=== PATIENT | male | born 1960 | race Caucasian/White ===

== ENCOUNTER 2018-07-04 14:13 | Inpatient (IN) | payer MEDICAID, OTHER ==
[~2018-07-04] VITALS: Ht 177.8 cm; Wt 62.5 kg
[2018-07-04] MEDS ORDERED: SODIUM CHLORIDE 0.9% 1,000 ML IV SCH (15:00)
[2018-07-04] MEDS ORDERED: ONDANSETRON 2MG/ML, 2ML IVPush ONE (15:00)
[2018-07-04 15:12] LABS: MEAN CORPUSCULAR HEMOGLOBIN 31.9 pg (27.5-34.5); MEAN CORPUSCULAR HGB CONC 33.8 g/dL (33.2-36.2); MEAN CORPUSCULAR VOLUME 94.5 fL (81-97); MEAN PLATELET VOLUME 12.3 fL (7.4-10.4); PLATELET COUNT 173 x10^3/uL (130-400); RED BLOOD COUNT 7.38 x10^6/uL (4.38-5.82); RED CELL DISTRIBUTION WIDTH 12.9 % (9.4-14.8)
[2018-07-04 15:31] LABS: ALANINE AMINOTRANSFERASE 70 U/L (12-78); ALBUMIN 4.8 g/dL (3.4-5.0); ANION GAP 24 mmol/L (5-15); CALCIUM 11.4 mg/dL (8.5-10.1); CHLORIDE 94 mmol/L (98-107); CREATININE 3.67 mg/dL (0.7-1.3)
[2018-07-04 15:36] LABS: ALKALINE PHOSPHATASE 127 U/L (45-117); BILIRUBIN,TOTAL 2.2 mg/dL (0.2-1.0); TOTAL PROTEIN 9.5 g/dL (6.4-8.2); TROPONIN I < 0.015 ng/mL (0.000-0.045)
[2018-07-04 15:38] LABS: CREATINE KINASE, TOTAL 208 U/L (39-308)
[2018-07-04 15:54] LABS: <RBC MORPHOLOGY> NORMAL; BASOPHILS # (AUTO) 0.05 x10^3/uL (0-0.1); BASOPHILS % (AUTO) 0 % (0-1); EOSINOPHILS # (AUTO) 0.02 x10^3/uL (0-0.4); EOSINOPHILS % (AUTO) 0 % (1-7); LYMPHOCYTES % (AUTO) 5 % (22-44); MD MORPH REVIEW ONLY; MONOCYTES % (AUTO) 5 % (2-9); NEUTROPHILS % (AUTO) 90 % (42-75)
[2018-07-04 15:55] LABS: <PLATELET ESTIMATE> ADEQUATE; LARGE PLATELETS 1+
[2018-07-04] MEDS ORDERED: SODIUM CHLORIDE 0.9%, 500ML IVBOLUS ONE (16:00)
[2018-07-04 17:10] LABS: INTERNATIONAL NORMALIZED RATIO 1.2 (0.93-1.1); PROTHROMBIN TIME 12.6 Seconds (9.6-11.5)
[2018-07-04] MEDS ORDERED: hydrALAzine 20 MG/ML, 1ML IVPush PRN (18:00)
[2018-07-04] MEDS ORDERED: LABETALOL 5MG/ML, 20ML IVPush PRN (18:00)
[2018-07-04] MEDS ORDERED: ONDANSETRON ODT 4 MG PO PRN (18:00)
[2018-07-04] MEDS ORDERED: ACETAMINOPHEN 325 MG TABLET PO PRN (18:00)
--- NOTE | 2018-07-04 18:32 | NUR ---
SBAR TO HIMANSHU DOMÍNGUEZ VIA TELEPHONE
[2018-07-04 18:46] LABS: THYROID STIMULATING HORMONE 1.74 mIU/L (0.358-3.740)
[2018-07-04 19:20] VITALS: BP 124/87
[2018-07-04] MEDS: HEPARIN 5,000 UNITS/ML, 1ML SQ SCH (21:24)
[2018-07-04] MEDS: SODIUM CHLORIDE 0.9% 1,000 ML IV SCH (21:25)
[2018-07-04] MEDS: NICOTINE 14MG/24 HR PATCH.TD24 TD SCH (21:25)
[2018-07-04] MEDS: PIPERACILLIN/TAZO/PMX 3.375GM 50 ML IV SCH (21:52)
[2018-07-05 00:38] VITALS: BP 111/77
[2018-07-05 00:55] LABS: MICROSCOPIC INDICATED
[2018-07-05 01:02] LABS: CULTURE INDICATED? NO
[2018-07-05 01:04] LABS: POTASSIUM,URINE RANDOM 56 mmol/L; PROTEIN/CREATININE RATIO,URINE 335 (0-200); TOTAL PROTEIN,URINE RANDOM 57 mg/dL (0-12)
[2018-07-05 01:07] LABS: CHLORIDE,URINE RANDOM < 10 mmol/L; SODIUM,URINE RANDOM < 5 mmol/L
[2018-07-05] MEDS: SODIUM CHLORIDE 0.9% 1,000 ML IV SCH ×2 (04:35→12:43)
[2018-07-05] MEDS: PIPERACILLIN/TAZO/PMX 3.375GM 50 ML IV SCH ×4 (04:35→22:16)
[2018-07-05] MEDS: HEPARIN 5,000 UNITS/ML, 1ML SQ SCH ×3 (04:36→20:55)
[2018-07-05 04:56] LABS: MEAN CORPUSCULAR HEMOGLOBIN 32.1 pg (27.5-34.5); MEAN CORPUSCULAR HGB CONC 33.7 g/dL (33.2-36.2); MEAN CORPUSCULAR VOLUME 95.2 fL (81-97); MEAN PLATELET VOLUME 12.1 fL (7.4-10.4); PLATELET COUNT 145 x10^3/uL (130-400); RED BLOOD COUNT 6.43 x10^6/uL (4.38-5.82); RED CELL DISTRIBUTION WIDTH 12.9 % (9.4-14.8)
[2018-07-05 04:59] LABS: ANION GAP 12 mmol/L (5-15); CALCIUM 9.7 mg/dL (8.5-10.1); CHLORIDE 107 mmol/L (98-107); CREATININE 3.34 mg/dL (0.7-1.3)
[2018-07-05 05:41] LABS: MD YES
[2018-07-05 05:42] LABS: BAND#(MANUAL) 0.55 x10^3/uL; BANDS%(MANUAL) 3 % (0-7); LYMPH#(MANUAL) 0.92 x10^3/uL (1-3.4); LYMPHS% (MANUAL) 5 % (22-44); MONOS#(MANUAL) 0.18 x10^3/uL (0.3-2.7); MONOS% (MANUAL) 1 % (2-9); SEG#(MANUAL) 16.74 x10^3/uL (1.8-6.8); SEGS% (MANUAL) 91 % (42-75)
[2018-07-05 05:43] LABS: <PLATELET ESTIMATE> ADEQUATE; <RBC MORPHOLOGY> NORMAL; LARGE PLATELETS 1+
[2018-07-05 07:55] VITALS: BP 129/87
[2018-07-05 11:17] LABS: AMPHETAMINE SCREEN, URINE Negative (Negative); BARBITURATE SCREEN, URINE Negative (Negative); BENZODIAZEPINE SCREEN, URINE Negative (Negative); CANNABINOID SCREEN, URINE Positive (Negative); COCAINE SCREEN, URINE Negative (Negative); METHADONE SCREEN, URINE Negative (Negative); OPIATE SCREEN, URINE Negative (Negative)
[2018-07-05] MEDS ORDERED: ERGOCALCIFEROL 50,000 UNIT CAPSULE PO SCH (13:00)
[2018-07-05] MEDS: SODIUM CHLORIDE 0.45% 1,000 ML IV SCH ×2 (13:29→20:55)
[2018-07-05 13:45] VITALS: BP 119/85
[2018-07-05 18:57] VITALS: BP 126/85
[2018-07-05] MEDS: NICOTINE 14MG/24 HR PATCH.TD24 TD SCH (20:55)
[2018-07-06 01:27] VITALS: BP 122/79
[2018-07-06] MEDS: PIPERACILLIN/TAZO/PMX 3.375GM 50 ML IV SCH ×4 (04:06→21:54)
[2018-07-06] MEDS: HEPARIN 5,000 UNITS/ML, 1ML SQ SCH ×3 (04:07→21:53)
[2018-07-06] MEDS: SODIUM CHLORIDE 0.45% 1,000 ML IV SCH (05:12)
[2018-07-06 05:55] LABS: BASOPHILS # (AUTO) 0.03 x10^3/uL (0-0.1); BASOPHILS % (AUTO) 0 % (0-1); EOSINOPHILS # (AUTO) 0.03 x10^3/uL (0-0.4); EOSINOPHILS % (AUTO) 0 % (1-7); LYMPHOCYTES # (AUTO) 1.06 x10^3/uL (1-3.4); LYMPHOCYTES % (AUTO) 9 % (22-44); MD NO; MEAN CORPUSCULAR HEMOGLOBIN 32.2 pg (27.5-34.5); MEAN CORPUSCULAR HGB CONC 33.9 g/dL (33.2-36.2); MEAN PLATELET VOLUME 11.6 fL (7.4-10.4); MONOCYTES # (AUTO) 0.88 x10^3/uL (0.2-0.8); MONOCYTES % (AUTO) 8 % (2-9); NEUTROPHILS # (AUTO) 9.58 x10^3/uL (1.8-6.8); NEUTROPHILS % (AUTO) 83 % (42-75); PLATELET COUNT 105 x10^3/uL (130-400); RED CELL DISTRIBUTION WIDTH 13.5 % (9.4-14.8)
[2018-07-06 06:04] LABS: ANION GAP 13 mmol/L (5-15); CALCIUM 9.3 mg/dL (8.5-10.1); CHLORIDE 114 mmol/L (98-107)
[2018-07-06 06:06] LABS: CREATININE 2.63 mg/dL (0.7-1.3)
[2018-07-06 07:30] VITALS: BP 118/72
[2018-07-06] MEDS: POTASSIUM CHLORIDE 20 MEQ in DEXTROSE 5% 1,000 ML IV SCH ×2 (10:47→21:54)
[2018-07-06 13:45] VITALS: BP 120/76
[2018-07-06 20:49] VITALS: BP 122/83
[2018-07-06] MEDS: NICOTINE 14MG/24 HR PATCH.TD24 TD SCH (21:53)
[2018-07-07 02:22] VITALS: BP 119/79
[2018-07-07] MEDS: HEPARIN 5,000 UNITS/ML, 1ML SQ SCH ×3 (02:52→21:29)
[2018-07-07] MEDS: PIPERACILLIN/TAZO/PMX 3.375GM 50 ML IV SCH ×2 (03:45→09:59)
[2018-07-07 05:35] LABS: MEAN CORPUSCULAR HEMOGLOBIN 32.4 pg (27.5-34.5); MEAN CORPUSCULAR HGB CONC 34.1 g/dL (33.2-36.2); MEAN CORPUSCULAR VOLUME 94.9 fL (81-97); RED BLOOD COUNT 5.18 x10^6/uL (4.38-5.82)
[2018-07-07 05:45] LABS: ALBUMIN 2.7 g/dL (3.4-5.0); ANION GAP 10 mmol/L (5-15); CALCIUM 9.1 mg/dL (8.5-10.1); CHLORIDE 113 mmol/L (98-107); CREATININE 1.91 mg/dL (0.7-1.3)
[2018-07-07 06:00] LABS: BASOPHILS # (AUTO) 0.02 x10^3/uL (0-0.1); BASOPHILS % (AUTO) 0 % (0-1); EOSINOPHILS # (AUTO) 0.13 x10^3/uL (0-0.4); EOSINOPHILS % (AUTO) 1 % (1-7); LYMPHOCYTES % (AUTO) 11 % (22-44); MD SCAN; MEAN PLATELET VOLUME 10.7 fL (7.4-10.4); MONOCYTES # (AUTO) 0.91 x10^3/uL (0.2-0.8); MONOCYTES % (AUTO) 10 % (2-9); NEUTROPHILS # (AUTO) 7.31 x10^3/uL (1.8-6.8); NEUTROPHILS % (AUTO) 78 % (42-75); PLATELET COUNT 86 x10^3/uL (130-400)
[2018-07-07 06:50] VITALS: BP 126/89
[2018-07-07] MEDS ORDERED: FENTANYL PF 100 MCG/2ML ONE (08:00)
[2018-07-07] MEDS ORDERED: MIDAZOLAM 1 MG/ML, 5ML ONE (08:00)
[2018-07-07] MEDS ORDERED: POTASSIUM PHOSPHATE 44 MEQ in SODIUM CHLORIDE 0.9% 500 ML IV ONE (09:30)
[2018-07-07] MEDS: POTASSIUM CHLORIDE 20 MEQ in DEXTROSE 5% 1,000 ML IV SCH (09:59)
[2018-07-07 13:00] VITALS: BP 128/81
[2018-07-07] MEDS ORDERED: AMINO ACID 10% IV SCH (17:00)
[2018-07-07] MEDS ORDERED: SMOF TPN IV SCH (17:00)
[2018-07-07] MEDS ORDERED: DEXTROSE 50%, 50ML SYRINGE IVPush PRN (17:00)
[2018-07-07] MEDS ORDERED: [UNRECOGNIZED DRUG - OTHER] IV SCH (17:00)
[2018-07-07] MEDS ORDERED: FAT EMUL IV SCH (17:00)
[2018-07-07] MEDS ORDERED: DEXTROSE 70% IV SCH (17:00)
[2018-07-07] MEDS ORDERED: PVN PER PHARMACY MC PRN (17:00)
[2018-07-07] MEDS ORDERED: DEXTROSE 10% 500 ML IV PRN (17:00)
[2018-07-07] MEDS: FILTER, DISP 1.2 MICRON FOR TPN/PVN IV PRN (18:17)
[2018-07-07] MEDS: INSULIN REGULAR LOW DOSE Q6H X 48HRS SQ-INSULIN SCH (21:29)
[2018-07-07] MEDS: NICOTINE 14MG/24 HR PATCH.TD24 TD SCH (21:29)
[2018-07-07 21:33] VITALS: BP 127/88
[2018-07-08 01:55] VITALS: BP 121/62
[2018-07-08] MEDS: INSULIN REGULAR LOW DOSE Q6H X 48HRS SQ-INSULIN SCH ×4 (03:00→19:36)
[2018-07-08] MEDS: HEPARIN 5,000 UNITS/ML, 1ML SQ SCH (04:44)
[2018-07-08 04:45] VITALS: BP 123/80
[2018-07-08 06:16] LABS: CHLORIDE 111 mmol/L (98-107)
[2018-07-08 06:28] LABS: ALANINE AMINOTRANSFERASE 103 U/L (12-78); ALBUMIN 2.6 g/dL (3.4-5.0); ALKALINE PHOSPHATASE 92 U/L (45-117); ANION GAP 6 mmol/L (5-15); BILIRUBIN,TOTAL 1.2 mg/dL (0.2-1.0); CALCIUM 8.9 mg/dL (8.5-10.1); PREALBUMIN 16.8 mg/dL (20.0-40.0); TOTAL PROTEIN 5.7 g/dL (6.4-8.2); TRIGLYCERIDES 208 mg/dL (50-200)
[2018-07-08 06:33] LABS: MEAN CORPUSCULAR HEMOGLOBIN 32.3 pg (27.5-34.5); MEAN CORPUSCULAR HGB CONC 34.1 g/dL (33.2-36.2); MEAN CORPUSCULAR VOLUME 94.7 fL (81-97); MEAN PLATELET VOLUME 11.2 fL (7.4-10.4); PLATELET COUNT 84 x10^3/uL (130-400); RED BLOOD COUNT 5.06 x10^6/uL (4.38-5.82); RED CELL DISTRIBUTION WIDTH 13.1 % (9.4-14.8)
[2018-07-08 06:35] LABS: BASOPHILS # (AUTO) 0.03 x10^3/uL (0-0.1); BASOPHILS % (AUTO) 0 % (0-1); EOSINOPHILS # (AUTO) 0.22 x10^3/uL (0-0.4); EOSINOPHILS % (AUTO) 3 % (1-7); LYMPHOCYTES # (AUTO) 1.23 x10^3/uL (1-3.4); LYMPHOCYTES % (AUTO) 15 % (22-44); MD SCAN; MONOCYTES # (AUTO) 0.97 x10^3/uL (0.2-0.8); MONOCYTES % (AUTO) 12 % (2-9); NEUTROPHILS # (AUTO) 5.94 x10^3/uL (1.8-6.8); NEUTROPHILS % (AUTO) 71 % (42-75)
[2018-07-08 07:02] VITALS: BP 138/87
[2018-07-08 13:13] VITALS: BP 112/80
[2018-07-08] MEDS: FILTER, DISP 1.2 MICRON FOR TPN/PVN IV PRN (16:22)
[2018-07-08] MEDS ORDERED: OMNIPAQUE 350 MG/ML, 75ML BOTTLE ONE (16:57)
[2018-07-08] MEDS ORDERED: DEXTROSE 70% IV SCH (17:00)
[2018-07-08] MEDS ORDERED: SMOF TPN IV SCH (17:00)
[2018-07-08] MEDS ORDERED: AMINO ACID 10% IV SCH (17:00)
[2018-07-08] MEDS ORDERED: FAT EMUL IV SCH (17:00)
[2018-07-08] MEDS ORDERED: [UNRECOGNIZED DRUG - OTHER] IV SCH (17:00)
[2018-07-08] MEDS: NICOTINE 14MG/24 HR PATCH.TD24 TD SCH (19:47)
[2018-07-08 21:45] VITALS: BP 118/78
[2018-07-09] MEDS: INSULIN REGULAR LOW DOSE Q6H X 48HRS SQ-INSULIN SCH ×2 (03:00→09:00)
[2018-07-09 03:59] VITALS: BP 108/73
[2018-07-09 05:44] LABS: ANION GAP 6 mmol/L (5-15); CHLORIDE 106 mmol/L (98-107); CREATININE 1.13 mg/dL (0.7-1.3)
[2018-07-09] MEDS ORDERED: BUPIVACAINE/PF-EPI 0.5% 1:200K ONE (06:34)
[2018-07-09 07:37] VITALS: BP 122/81
[2018-07-09] MEDS ORDERED: MIDAZOLAM 1 MG/ML, 2ML ONE (11:55)
[2018-07-09] MEDS ORDERED: FENTANYL PF 250 MCG/5ML ONE (11:56)
[2018-07-09] MEDS ORDERED: CEFAZOLIN 1,000 MG ONE (12:06)
[2018-07-09] MEDS ORDERED: ROCURONIUM 10 MG/ML,10ML ONE (12:06)
[2018-07-09] MEDS ORDERED: PROPOFOL 10 MG/ML, 20ML ONE (12:06)
[2018-07-09] MEDS ORDERED: ONDANSETRON 2MG/ML, 2ML ONE (12:06)
[2018-07-09] MEDS ORDERED: EPHEDRINE 50 MG/ML, 1ML IM PRN (13:00)
[2018-07-09] MEDS ORDERED: PROMETHAZINE 12.5 MG SUPP PR PRN (13:00)
[2018-07-09] MEDS ORDERED: ONDANSETRON ODT 8 MG PO PRN (13:00)
[2018-07-09] MEDS ORDERED: MORPHINE SULFATE 4 MG/ML, 1ML IVPush PRN (13:00)
[2018-07-09] MEDS ORDERED: MIDAZOLAM 1 MG/ML, 2ML IV PRN (13:00)
[2018-07-09] MEDS ORDERED: PROMETHAZINE 25 MG/ML, 1ML IV PRN (13:00)
[2018-07-09] MEDS ORDERED: ONDANSETRON 2MG/ML, 2ML IV PRN (13:00)
[2018-07-09] MEDS ORDERED: PROMETHAZINE 25 MG SUPP PR PRN (13:00)
[2018-07-09] MEDS ORDERED: DIPHENHYDRAMINE 50 MG/ML, 1ML IVPush PRN (13:00)
[2018-07-09] MEDS ORDERED: EPHEDRINE 50 MG/ML, 1ML IVPush PRN (13:00)
[2018-07-09] MEDS ORDERED: ALBUTEROL/IPRATROPIUM 2.5MG/0.5MG, 3 ML ONE (13:15)
[2018-07-09] MEDS ORDERED: FENTANYL PF 100 MCG/2ML ONE (13:17)
[2018-07-09] MEDS ORDERED: HYDROmorphone 2 MG/ML, 1ML ONE (13:17)
[2018-07-09] MEDS: FENTANYL PF 100 MCG/2ML IV PRN ×4 (13:20→13:51)
[2018-07-09] MEDS: ALBUTEROL/IPRATROPIUM 2.5MG/0.5MG, 3 ML NPPB PRN (13:24)
[2018-07-09] MEDS: HYDROmorphone 2 MG/ML, 1ML IVPush PRN ×4 (13:25→14:00)
[2018-07-09] MEDS ORDERED: OMNIPAQUE 350 MG/ML, 50 ML BOTTLE ONE (14:05)
[2018-07-09 15:24] VITALS: BP 122/84
[2018-07-09] MEDS ORDERED: FILTER, DISP 1.2 MICRON FOR TPN/PVN IV PRN (17:00)
[2018-07-09] MEDS ORDERED: AMINO ACID 10% 900 ML, DEXTROSE 70% 420 ML, FAT EMUL/SMOF TPN 225 ML, STERILE WATER 1,3... IV SCH (17:00)
[2018-07-09 19:50] VITALS: BP 119/78
[2018-07-09] MEDS: morphine SULFATE 10 MG/ML, 1ML IVPush PRN (21:37)
[2018-07-09] MEDS: NICOTINE 14MG/24 HR PATCH.TD24 TD SCH (21:37)
[2018-07-10 02:08] VITALS: BP 143/91
[2018-07-10 05:27] LABS: CHLORIDE 106 mmol/L (98-107)
[2018-07-10 05:33] LABS: ANION GAP 9 mmol/L (5-15); CALCIUM 8.9 mg/dL (8.5-10.1); CREATININE 0.96 mg/dL (0.7-1.3)
[2018-07-10 07:40] VITALS: BP 132/83
[2018-07-10] MEDS: INSULIN REGULAR LOW DOSE QDAY SQ-INSULIN SCH (07:48)
[2018-07-10] MEDS: morphine SULFATE 10 MG/ML, 1ML IVPush PRN (08:45)
[2018-07-10 13:42] VITALS: BP 126/82
[2018-07-10] MEDS ORDERED: AMINO ACID 10% 900 ML, DEXTROSE 70% 420 ML, FAT EMUL/SMOF TPN 225 ML, STERILE WATER 1,3... IV SCH (17:00)
[2018-07-10 19:31] VITALS: BP 113/79
[2018-07-10] MEDS: NICOTINE 14MG/24 HR PATCH.TD24 TD SCH (21:01)
[2018-07-10 23:33] VITALS: BP 123/77
[2018-07-11] MEDS: ONDANSETRON 2MG/ML, 2ML IVPush PRN (03:52)
[2018-07-11 05:42] LABS: CALCIUM 8.4 mg/dL (8.5-10.1); CHLORIDE 111 mmol/L (98-107)
[2018-07-11 05:49] LABS: ANION GAP 6 mmol/L (5-15); CREATININE 0.92 mg/dL (0.7-1.3)
[2018-07-11 07:27] VITALS: BP 112/73
[2018-07-11] MEDS: INSULIN REGULAR LOW DOSE QDAY SQ-INSULIN SCH (09:54)
[2018-07-11 13:50] VITALS: BP 112/73
[2018-07-11 19:18] VITALS: BP 118/82
[2018-07-11] MEDS: NICOTINE 14MG/24 HR PATCH.TD24 TD SCH (20:46)
[2018-07-12 00:59] VITALS: BP 106/72
[2018-07-12 07:00] VITALS: BP 100/64
[2018-07-12] MEDS ORDERED: ERGOCALCIFEROL 50,000 UNIT CAPSULE PO SCH (09:00)
[2018-07-12] MEDS: GUAIFENESIN 100 MG/5 ML, 10ML UDC JT SCH ×3 (11:26→22:43)
[2018-07-12 13:48] VITALS: BP 112/74
[2018-07-12 19:01] VITALS: BP 113/80
[2018-07-12] MEDS: NICOTINE 14MG/24 HR PATCH.TD24 TD SCH (22:46)
[2018-07-13 00:57] VITALS: BP 113/75
[2018-07-13] MEDS: GUAIFENESIN 100 MG/5 ML, 10ML UDC JT SCH ×4 (06:07→20:07)
[2018-07-13 06:52] VITALS: BP 109/75
[2018-07-13] MEDS ORDERED: POLYETHYLENE GLYCOL 17 GM PACKET JT SCH (09:00)
[2018-07-13 12:26] VITALS: BP 113/78
[2018-07-13] MEDS ORDERED: GLYCERIN ADULT SUPP PR ONE (13:00)
[2018-07-13 19:32] VITALS: BP 140/86
[2018-07-13] MEDS: NICOTINE 14MG/24 HR PATCH.TD24 TD SCH (20:05)
[2018-07-14] MEDS: ONDANSETRON 2MG/ML, 2ML IVPush PRN ×2 (00:14→16:12)
[2018-07-14 00:31] VITALS: BP 116/79
[2018-07-14] MEDS: GUAIFENESIN 100 MG/5 ML, 10ML UDC JT SCH ×4 (06:00→19:43)
[2018-07-14 06:48] VITALS: BP 113/79
[2018-07-14] MEDS ORDERED: ERGO80004 PO (08:41)
[2018-07-14 12:35] VITALS: BP 126/85
--- NOTE | 2018-07-14 14:27 | NUR ---
TF goal: Jevity 1.2 goal: 65 ml/hr Addendum: 07/14/18 at [address] Amended: Links added.
[2018-07-14 19:10] VITALS: BP 133/85
[2018-07-14] MEDS: NICOTINE 14MG/24 HR PATCH.TD24 TD SCH (19:43)
[2018-07-15 02:14] VITALS: BP 115/83
[2018-07-15 05:00] LABS: CHLORIDE 105 mmol/L (98-107)
[2018-07-15 05:04] LABS: ANION GAP 7 mmol/L (5-15); CALCIUM 8.2 mg/dL (8.5-10.1); CREATININE 0.75 mg/dL (0.7-1.3)
[2018-07-15] MEDS: GUAIFENESIN 100 MG/5 ML, 10ML UDC JT SCH ×4 (05:51→20:04)
[2018-07-15 08:55] VITALS: BP 126/82
[2018-07-15] MEDS ORDERED: chlorPROMAZINE 25 MG/ML, 1ML IM PRN (10:00)
[2018-07-15 14:29] VITALS: BP 114/80
[2018-07-15 20:00] VITALS: BP 107/72
[2018-07-15] MEDS: NICOTINE 14MG/24 HR PATCH.TD24 TD SCH (20:05)
[2018-07-16 02:00] VITALS: BP 122/69
[2018-07-16] MEDS: GUAIFENESIN 100 MG/5 ML, 10ML UDC JT SCH ×3 (05:17→16:33)
[2018-07-16 08:14] VITALS: BP 129/86
[2018-07-16 13:04] VITALS: BP 139/88
[2018-07-19] MEDS ORDERED: ERGOCALCIFEROL 8,000UNIT/ML PO SCH (09:00)
== END 2018-07-16 17:38 | disposition home or self-care (01) | DRG 329 ==
LOC: ED 17:40 → EDIP 17:41 → ED 17:45 → 4WST 19:04 → 3NW 07-10 13:26
PROVIDERS: ADMIT Hospitalist; ATTEND Hospitalist
PROC: 0DB38ZX Excision of Lower Esophagus, Via Natural or Artificial Opening Endoscopic, Diagnostic (ICD-10-PCS; 2018-07-07)
PROC: 0DJ08ZZ Inspection of Upper Intestinal Tract, Via Natural or Artificial Opening Endoscopic (ICD-10-PCS; 2018-07-07)
PROC: 0D1A4Z4 Bypass Jejunum to Cutaneous, Percutaneous Endoscopic Approach (ICD-10-PCS; principal; 2018-07-09 11:45)
DX: C15.4 Malignant neoplasm of middle third of esophagus (principal); J18.9 Pneumonia, unspecified organism; K85.00 Idiopathic acute pancreatitis without necrosis or infection; N17.0 Acute kidney failure with tubular necrosis; D68.69 Other thrombophilia; E87.0 Hyperosmolality and hypernatremia; E87.2 Acidosis; J44.0 Chronic obstructive pulmonary disease with (acute) lower respiratory infection; R47.01 Aphasia; D69.6 Thrombocytopenia, unspecified; D75.1 Secondary polycythemia; E21.3 Hyperparathyroidism, unspecified; E83.41 Hypermagnesemia; E86.0 Dehydration; F17.210 Nicotine dependence, cigarettes, uncomplicated; J84.10 Pulmonary fibrosis, unspecified; K22.2 Esophageal obstruction; K59.00 Constipation, unspecified; N40.0 Benign prostatic hyperplasia without lower urinary tract symptoms; R62.7 Adult failure to thrive; R63.3 Feeding difficulties; Q63.1 Lobulated, fused and horseshoe kidney; R73.9 Hyperglycemia, unspecified
CPT/HCPCS: 36415; 74018; 74220; 84145; 99285; J3490; J7620; 71045; 71260; 74176; 80048; 80053; 80069; 80307; 81001; 82306; 82330; 82436; 82550; 82553; 82570; 82962; 83605; 83690; 83735; 83970; 84100; 84133; 84134; 84156; 84300; 84443; 84478; 84484; 85025; 85610; 87040; 87205; 88305; 93005; 94640; 96360; 96361; 99152; 99153; B4087; G0378; J0610; J0690; J1170; J1644; J1815; J2250; J2405; J2543; J2704; J3010; J3230; J3475; J3480; J7070; Q9967; J1720; J2270; J3420; J7030; J7040

== ENCOUNTER 2018-07-22 13:12 | Outpatient (CLI) | payer MEDICAID ==
[~2018-07-22 13:12] MED LIST: ERGO80004 PO
== END 2018-07-22 23:59 | disposition home or self-care (01) ==
LOC: PETCFH 13:12
PROVIDERS: ATTEND Radiology Radiation Oncology
DX: K22.8 Other specified diseases of esophagus (principal)
CPT/HCPCS: 78815; A9552

== ENCOUNTER 2018-08-18 17:04 | Inpatient (IN) | payer MEDICAID ==
[~2018-08-18] VITALS: Ht 177.8 cm; Wt 63.4 kg
[2018-08-18] MEDS ORDERED: SODIUM CHLORIDE 0.9% 1,000ML IVBOLUS ONE (18:00)
[2018-08-18] MEDS ORDERED: SODIUM CHLORIDE FLUSH 10ML SYR IVF ONE (18:00)
[2018-08-18 18:35] LABS: BASOPHILS # (AUTO) 0.01 x10^3/uL (0-0.1); BASOPHILS % (AUTO) 0 % (0-1); EOSINOPHILS # (AUTO) 0.13 x10^3/uL (0-0.4); EOSINOPHILS % (AUTO) 1 % (1-7); LYMPHOCYTES # (AUTO) 0.77 x10^3/uL (1-3.4); LYMPHOCYTES % (AUTO) 7 % (22-44); MD NO; MEAN CORPUSCULAR HGB CONC 33.3 g/dL (33.2-36.2); MEAN CORPUSCULAR VOLUME 93.1 fL (81-97); MEAN PLATELET VOLUME 10.9 fL (7.4-10.4); MONOCYTES # (AUTO) 0.75 x10^3/uL (0.2-0.8); MONOCYTES % (AUTO) 6 % (2-9); NEUTROPHILS # (AUTO) 10.05 x10^3/uL (1.8-6.8); NEUTROPHILS % (AUTO) 86 % (42-75); PLATELET COUNT 319 x10^3/uL (130-400); RED BLOOD COUNT 4.55 x10^6/uL (4.38-5.82); RED CELL DISTRIBUTION WIDTH 15.3 % (9.4-14.8)
[2018-08-18 18:37] LABS: ALANINE AMINOTRANSFERASE 67 U/L (12-78); ALBUMIN 3.7 g/dL (3.4-5.0); ANION GAP 16 mmol/L (5-15); CALCIUM 10.4 mg/dL (8.5-10.1); CHLORIDE 105 mmol/L (98-107); CREATININE 0.84 mg/dL (0.7-1.3)
[2018-08-18 18:41] LABS: ALKALINE PHOSPHATASE 162 U/L (45-117); BILIRUBIN,TOTAL 0.9 mg/dL (0.2-1.0); TOTAL PROTEIN 8.9 g/dL (6.4-8.2); TROPONIN I < 0.015 ng/mL (0.000-0.045)
[2018-08-18] MEDS ORDERED: OMNIPAQUE 350 MG/ML, 100ML BOTTLE ONE (19:19)
[2018-08-18] MEDS ORDERED: VANCOMYCIN PER PHARMACY MC PRN ×2 (20:30→21:00)
[2018-08-18] MEDS ORDERED: DEXAMETHASONE 4 MG/ML, 1ML IV ONE (20:30)
[2018-08-18] MEDS ORDERED: PIPERACILLIN/TAZO/PMX 3.375GM 50 ML IV ONE (20:30)
[2018-08-18] MEDS ORDERED: hydrALAzine 20 MG/ML, 1ML IVPush PRN (21:00)
[2018-08-18] MEDS ORDERED: ONDANSETRON 2MG/ML, 2ML IVPush PRN (21:00)
[2018-08-18] MEDS ORDERED: BISACODYL 10 MG SUPP PR PRN (21:00)
[2018-08-18] MEDS ORDERED: PROMETHAZINE 25 MG/ML, 1ML IM PRN (21:00)
[2018-08-18] MEDS ORDERED: LABETALOL 5 MG/ML SYRINGE IVPush PRN (21:00)
[2018-08-18] MEDS: DEXAMETHASONE 10 MG in SODIUM CHLORIDE 0.9% 50 ML IV SCH ×2 (21:00→21:56)
[2018-08-18 21:14] LABS: HEMOGLOBIN A1C 4.9 % (4.2-6.3)
[2018-08-18 21:16] LABS: FREE T4 (FREE THYROXINE) 1.24 ng/dL (0.76-1.46); THYROID STIMULATING HORMONE 2.57 mIU/L (0.358-3.740)
[2018-08-18 21:24] VITALS: BP 140/100
[2018-08-18] MEDS ORDERED: PHARMACOKINETIC MONITORING MC PRN (22:00)
[2018-08-18] MEDS ORDERED: VANCOMYCIN 1,200 MG in SODIUM CHLORIDE 0.9% 250 ML IV SCH (22:00)
[2018-08-18] MEDS ORDERED: PHARMACOKINETIC CONSULTATION MC ONE (22:00)
[2018-08-18] MEDS: D5%-0.9% NACL 1,000 ML IV SCH (22:03)
[2018-08-18] MEDS: PANTOPRAZOLE 40 MG IV IVPush SCH (22:03)
[2018-08-18] MEDS ORDERED: DEXAMETHASONE 4 MG/ML, 1ML IVPush SCH (23:00)
[2018-08-19 00:06] LABS: TROPONIN I < 0.015 ng/mL (0.000-0.045)
[2018-08-19] MEDS: PIPERACILLIN/TAZO/PMX 3.375GM 50 ML IV SCH ×4 (04:04→22:05)
[2018-08-19] MEDS: DEXAMETHASONE 10 MG in SODIUM CHLORIDE 0.9% 50 ML IV SCH ×4 (04:04→21:07)
[2018-08-19 04:07] VITALS: BP 123/85
[2018-08-19 04:18] LABS: MEAN CORPUSCULAR HEMOGLOBIN 30.7 pg (27.5-34.5); MEAN CORPUSCULAR HGB CONC 32.7 g/dL (33.2-36.2); MEAN CORPUSCULAR VOLUME 93.9 fL (81-97); MEAN PLATELET VOLUME 10.3 fL (7.4-10.4); PLATELET COUNT 276 x10^3/uL (130-400); RED BLOOD COUNT 4.01 x10^6/uL (4.38-5.82); RED CELL DISTRIBUTION WIDTH 15.7 % (9.4-14.8)
[2018-08-19 04:47] LABS: BASOPHILS # (AUTO) 0.07 x10^3/uL (0-0.1); BASOPHILS % (AUTO) 1 % (0-1); EOSINOPHILS # (AUTO) 0.01 x10^3/uL (0-0.4); EOSINOPHILS % (AUTO) 0 % (1-7); LYMPHOCYTES # (AUTO) 0.27 x10^3/uL (1-3.4); LYMPHOCYTES % (AUTO) 3 % (22-44); MD SCAN; MONOCYTES # (AUTO) 0.03 x10^3/uL (0.2-0.8); MONOCYTES % (AUTO) 0 % (2-9); NEUTROPHILS # (AUTO) 9.51 x10^3/uL (1.8-6.8); NEUTROPHILS % (AUTO) 96 % (42-75)
[2018-08-19 04:49] LABS: ANION GAP 12 mmol/L (5-15); CALCIUM 9.2 mg/dL (8.5-10.1); CHLORIDE 110 mmol/L (98-107)
[2018-08-19 04:53] LABS: ALANINE AMINOTRANSFERASE 51 U/L (12-78); ALKALINE PHOSPHATASE 132 U/L (45-117); BILIRUBIN,TOTAL 0.8 mg/dL (0.2-1.0); CHOL/HDL RATIO 4.8; CHOLESTEROL, TOTAL 176 mg/dL (140-239); CREATININE 0.79 mg/dL (0.7-1.3); HDL CHOL % 21 % (26-37); HDL CHOLESTEROL (DIRECT) 37 mg/dL (40-60); LDL CHOLESTEROL,CALCULATED 125 mg/dL (54-169); LDL/HDL RATIO 3.4 (0.5-3.0); TOTAL PROTEIN 7.5 g/dL (6.4-8.2); TRIGLYCERIDES 71 mg/dL (50-200); VLDL CHOLESTEROL 14 mg/dL (0-25)
[2018-08-19] MEDS: D5%-0.9% NACL 1,000 ML IV SCH ×2 (08:27→14:28)
[2018-08-19] MEDS: PANTOPRAZOLE 40 MG IV IVPush SCH ×2 (09:06→21:06)
[2018-08-19] MEDS: VANCOMYCIN 1,200 MG in SODIUM CHLORIDE 0.9% 250 ML IV SCH ×2 (11:15→22:46)
[2018-08-20] MEDS: DEXAMETHASONE 10 MG in SODIUM CHLORIDE 0.9% 50 ML IV SCH ×4 (03:21→20:45)
[2018-08-20] MEDS: PIPERACILLIN/TAZO/PMX 3.375GM 50 ML IV SCH ×4 (04:16→22:03)
[2018-08-20 04:43] LABS: BASOPHILS # (AUTO) 0.06 x10^3/uL (0-0.1); BASOPHILS % (AUTO) 1 % (0-1); EOSINOPHILS % (AUTO) 0 % (1-7); LYMPHOCYTES # (AUTO) 0.41 x10^3/uL (1-3.4); LYMPHOCYTES % (AUTO) 3 % (22-44); MD NO; MEAN CORPUSCULAR HEMOGLOBIN 30.9 pg (27.5-34.5); MEAN CORPUSCULAR HGB CONC 33.1 g/dL (33.2-36.2); MEAN CORPUSCULAR VOLUME 93.3 fL (81-97); MEAN PLATELET VOLUME 10.3 fL (7.4-10.4); MONOCYTES # (AUTO) 0.62 x10^3/uL (0.2-0.8); MONOCYTES % (AUTO) 5 % (2-9); NEUTROPHILS # (AUTO) 11.34 x10^3/uL (1.8-6.8); NEUTROPHILS % (AUTO) 91 % (42-75); PLATELET COUNT 271 x10^3/uL (130-400); RED BLOOD COUNT 3.93 x10^6/uL (4.38-5.82); RED CELL DISTRIBUTION WIDTH 15.4 % (9.4-14.8)
[2018-08-20 04:55] LABS: ANION GAP 7 mmol/L (5-15); CALCIUM 9.7 mg/dL (8.5-10.1); CHLORIDE 113 mmol/L (98-107)
[2018-08-20 04:57] LABS: CREATININE 1.01 mg/dL (0.7-1.3)
[2018-08-20] MEDS: PANTOPRAZOLE 40 MG IV IVPush SCH ×2 (08:58→20:45)
[2018-08-20] MEDS: D5%-0.9% NACL 1,000 ML IV SCH ×2 (10:00→22:05)
[2018-08-20 13:45] VITALS: BP 144/91
[2018-08-20 19:21] VITALS: BP 138/85
[2018-08-21 00:34] VITALS: BP 126/77
[2018-08-21] MEDS: DEXAMETHASONE 10 MG in SODIUM CHLORIDE 0.9% 50 ML IV SCH ×2 (02:54→08:12)
[2018-08-21] MEDS: PIPERACILLIN/TAZO/PMX 3.375GM 50 ML IV SCH ×4 (04:16→22:19)
[2018-08-21 04:48] LABS: BASOPHILS % (AUTO) 0 % (0-1); EOSINOPHILS % (AUTO) 0 % (1-7); LYMPHOCYTES # (AUTO) 0.63 x10^3/uL (1-3.4); LYMPHOCYTES % (AUTO) 5 % (22-44); MD NO; MEAN CORPUSCULAR HEMOGLOBIN 30.8 pg (27.5-34.5); MEAN CORPUSCULAR HGB CONC 32.6 g/dL (33.2-36.2); MEAN CORPUSCULAR VOLUME 94.5 fL (81-97); MEAN PLATELET VOLUME 10.7 fL (7.4-10.4); MONOCYTES # (AUTO) 0.62 x10^3/uL (0.2-0.8); MONOCYTES % (AUTO) 5 % (2-9); NEUTROPHILS # (AUTO) 12.01 x10^3/uL (1.8-6.8); NEUTROPHILS % (AUTO) 91 % (42-75); PLATELET COUNT 266 x10^3/uL (130-400); RED BLOOD COUNT 3.86 x10^6/uL (4.38-5.82); RED CELL DISTRIBUTION WIDTH 15.7 % (9.4-14.8)
[2018-08-21 04:53] LABS: ANION GAP 7 mmol/L (5-15); CHLORIDE 114 mmol/L (98-107)
[2018-08-21 05:00] LABS: CALCIUM 9.3 mg/dL (8.5-10.1); CREATININE 0.91 mg/dL (0.7-1.3)
[2018-08-21 07:20] VITALS: BP 155/83
[2018-08-21] MEDS: PANTOPRAZOLE 40 MG IV IVPush SCH ×2 (08:11→20:19)
[2018-08-21 11:57] VITALS: BP_SYST 129; BP_SYST 135; BP_DIAS 86
[2018-08-21 12:23] VITALS: BP 129/86
[2018-08-21 12:54] LABS: BASOPHILS # (AUTO) 0.02 x10^3/uL (0-0.1); BASOPHILS % (AUTO) 0 % (0-1); EOSINOPHILS % (AUTO) 0 % (1-7); LYMPHOCYTES # (AUTO) 0.53 x10^3/uL (1-3.4); LYMPHOCYTES % (AUTO) 3 % (22-44); MD NO; MEAN CORPUSCULAR HEMOGLOBIN 30.1 pg (27.5-34.5); MEAN CORPUSCULAR HGB CONC 32.1 g/dL (33.2-36.2); MEAN CORPUSCULAR VOLUME 93.7 fL (81-97); MEAN PLATELET VOLUME 10.5 fL (7.4-10.4); MONOCYTES # (AUTO) 0.54 x10^3/uL (0.2-0.8); MONOCYTES % (AUTO) 3 % (2-9); NEUTROPHILS # (AUTO) 14.63 x10^3/uL (1.8-6.8); NEUTROPHILS % (AUTO) 93 % (42-75); PLATELET COUNT 267 x10^3/uL (130-400); RED BLOOD COUNT 4.26 x10^6/uL (4.38-5.82); RED CELL DISTRIBUTION WIDTH 15.7 % (9.4-14.8)
[2018-08-21 13:05] LABS: ANION GAP 8 mmol/L (5-15); CALCIUM 9.4 mg/dL (8.5-10.1); CHLORIDE 111 mmol/L (98-107)
[2018-08-21 13:08] LABS: ALANINE AMINOTRANSFERASE 47 U/L (12-78); ALKALINE PHOSPHATASE 121 U/L (45-117); BILIRUBIN,TOTAL 0.4 mg/dL (0.2-1.0); CREATININE 0.85 mg/dL (0.7-1.3)
[2018-08-21] MEDS ORDERED: DIPHENHYDRAMINE 50 MG/ML, 1ML IVPush ONE (15:30)
[2018-08-21] MEDS ORDERED: ONDANSETRON 16 MG, DEXAMETHASONE 10 MG in SODIUM CHLORIDE 0.9% 50 ML IVPB ONE (15:30)
[2018-08-21] MEDS ORDERED: FAMOTIDINE 20 MG/2 ML IVPush ONE (15:30)
[2018-08-21] MEDS ORDERED: FILTER 0.22 MICRON IV ONE (16:00)
[2018-08-21] MEDS ORDERED: SODIUM CHLORIDE 0.9% IV ONE ×2 (16:00→17:00)
[2018-08-21] MEDS ORDERED: PACLITAXEL IV ONE (16:00)
[2018-08-21] MEDS ORDERED: CARBOPLATIN IV ONE (17:00)
[2018-08-21 19:36] VITALS: BP 144/88
[2018-08-21] MEDS: D5%-0.9% NACL 1,000 ML IV SCH (20:21)
[2018-08-22 00:42] VITALS: BP 153/84
[2018-08-22] MEDS: DEXAMETHASONE 10 MG in SODIUM CHLORIDE 0.9% 50 ML IV SCH ×2 (03:07→16:39)
[2018-08-22] MEDS: PIPERACILLIN/TAZO/PMX 3.375GM 50 ML IV SCH ×4 (03:47→21:32)
[2018-08-22 07:17] VITALS: BP 158/98
[2018-08-22] MEDS: PANTOPRAZOLE 40 MG IV IVPush SCH ×2 (08:38→21:31)
[2018-08-22 12:14] VITALS: BP 135/83
[2018-08-22] MEDS: D5%-0.9% NACL 1,000 ML IV SCH (16:38)
[2018-08-22 18:44] VITALS: BP 123/83
[2018-08-23 02:29] VITALS: BP 142/88
[2018-08-23] MEDS: DEXAMETHASONE 10 MG in SODIUM CHLORIDE 0.9% 50 ML IV SCH (03:06)
[2018-08-23] MEDS: PIPERACILLIN/TAZO/PMX 3.375GM 50 ML IV SCH ×4 (04:21→21:54)
[2018-08-23] MEDS: PANTOPRAZOLE 40 MG IV IVPush SCH ×2 (08:38→20:06)
[2018-08-23 09:07] VITALS: BP 124/83
[2018-08-23 12:02] VITALS: BP 137/96
[2018-08-23] MEDS: D5%-0.9% NACL 1,000 ML IV SCH (15:53)
[2018-08-23] MEDS: DEXAMETHASONE 4 MG/ML, 1ML IV SCH (16:27)
[2018-08-23 19:00] VITALS: BP 143/90
[2018-08-24 01:06] VITALS: BP 153/91
[2018-08-24] MEDS: DEXAMETHASONE 4 MG/ML, 1ML IV SCH ×2 (03:56→16:01)
[2018-08-24] MEDS: PIPERACILLIN/TAZO/PMX 3.375GM 50 ML IV SCH ×4 (03:57→21:59)
[2018-08-24 07:28] VITALS: BP 142/95
[2018-08-24 09:40] LABS: MEAN CORPUSCULAR HEMOGLOBIN 30.1 pg (27.5-34.5); MEAN CORPUSCULAR HGB CONC 32.3 g/dL (33.2-36.2); MEAN CORPUSCULAR VOLUME 93.3 fL (81-97); MEAN PLATELET VOLUME 10.6 fL (7.4-10.4); PLATELET COUNT 229 x10^3/uL (130-400); RED BLOOD COUNT 4.33 x10^6/uL (4.38-5.82); RED CELL DISTRIBUTION WIDTH 15.5 % (9.4-14.8)
[2018-08-24 09:53] LABS: ANION GAP 7 mmol/L (5-15); CALCIUM 8.6 mg/dL (8.5-10.1); CHLORIDE 101 mmol/L (98-107); CREATININE 0.64 mg/dL (0.7-1.3)
[2018-08-24] MEDS: PANTOPRAZOLE 40 MG IV IVPush SCH ×2 (09:56→22:00)
[2018-08-24 10:19] LABS: BASOPHILS # (AUTO) 0.02 x10^3/uL (0-0.1); BASOPHILS % (AUTO) 0 % (0-1); EOSINOPHILS # (AUTO) 0.01 x10^3/uL (0-0.4); EOSINOPHILS % (AUTO) 0 % (1-7); LYMPHOCYTES # (AUTO) 0.27 x10^3/uL (1-3.4); LYMPHOCYTES % (AUTO) 2 % (22-44); MD SCAN; MONOCYTES # (AUTO) 0.29 x10^3/uL (0.2-0.8); MONOCYTES % (AUTO) 2 % (2-9); NEUTROPHILS # (AUTO) 13.95 x10^3/uL (1.8-6.8); NEUTROPHILS % (AUTO) 96 % (42-75)
[2018-08-24] MEDS: morphine SULFATE 10 MG/ML, 1ML IVPush PRN ×2 (10:30→16:26)
[2018-08-24 13:22] VITALS: BP 124/87
[2018-08-24] MEDS: D5%-0.9% NACL 1,000 ML IV SCH (16:08)
[2018-08-24] MEDS ORDERED: RACEPINEPHRINE INH 2.25%, 0.5ML ONE (18:10)
[2018-08-25] MEDS: DEXAMETHASONE 4 MG/ML, 1ML IV SCH ×2 (04:11→15:54)
[2018-08-25] MEDS: PIPERACILLIN/TAZO/PMX 3.375GM 50 ML IV SCH ×4 (04:11→21:41)
[2018-08-25 04:14] VITALS: BP 120/85
[2018-08-25] MEDS: PANTOPRAZOLE 40 MG IV IVPush SCH ×2 (07:59→21:41)
[2018-08-25] MEDS: SODIUM CHLORIDE 0.9% 1,000 ML IV SCH (08:00)
[2018-08-25] MEDS: MICAFUNGIN 150 MG in SODIUM CHLORIDE 0.9% 100 ML IV SCH (08:40)
[2018-08-25] MEDS: morphine SULFATE 10 MG/ML, 1ML IVPush PRN (18:10)
[2018-08-26 01:33] VITALS: BP 116/78
[2018-08-26] MEDS: SODIUM CHLORIDE 0.9% 1,000 ML IV SCH ×2 (04:21→23:00)
[2018-08-26] MEDS: PIPERACILLIN/TAZO/PMX 3.375GM 50 ML IV SCH ×4 (04:21→22:59)
[2018-08-26] MEDS: DEXAMETHASONE 4 MG/ML, 1ML IV SCH ×2 (04:21→16:41)
[2018-08-26 05:17] LABS: MEAN CORPUSCULAR HEMOGLOBIN 31.1 pg (27.5-34.5); MEAN CORPUSCULAR HGB CONC 33.4 g/dL (33.2-36.2); MEAN CORPUSCULAR VOLUME 93.3 fL (81-97); MEAN PLATELET VOLUME 11.1 fL (7.4-10.4); PLATELET COUNT 247 x10^3/uL (130-400); RED BLOOD COUNT 3.77 x10^6/uL (4.38-5.82); RED CELL DISTRIBUTION WIDTH 15.5 % (9.4-14.8)
[2018-08-26 05:53] LABS: BASOPHILS # (AUTO) 0.06 x10^3/uL (0-0.1); BASOPHILS % (AUTO) 0 % (0-1); EOSINOPHILS # (AUTO) 0.44 x10^3/uL (0-0.4); EOSINOPHILS % (AUTO) 3 % (1-7); LYMPHOCYTES # (AUTO) 0.74 x10^3/uL (1-3.4); LYMPHOCYTES % (AUTO) 5 % (22-44); MONOCYTES # (AUTO) 0.35 x10^3/uL (0.2-0.8); MONOCYTES % (AUTO) 2 % (2-9); NEUTROPHILS # (AUTO) 13.27 x10^3/uL (1.8-6.8); NEUTROPHILS % (AUTO) 89 % (42-75)
[2018-08-26 05:56] LABS: MD SCAN
[2018-08-26 08:02] VITALS: BP 115/79
[2018-08-26] MEDS: PANTOPRAZOLE 40 MG IV IVPush SCH ×2 (10:14→20:14)
[2018-08-26] MEDS: MICAFUNGIN 150 MG in SODIUM CHLORIDE 0.9% 100 ML IV SCH (10:31)
[2018-08-26] MEDS: morphine SULFATE 10 MG/ML, 1ML IVPush PRN (13:38)
[2018-08-26 13:54] VITALS: BP 118/78
[2018-08-26 20:19] VITALS: BP 112/75
[2018-08-27 01:36] VITALS: BP 115/77
[2018-08-27] MEDS: DEXAMETHASONE 4 MG/ML, 1ML IV SCH ×2 (04:11→17:07)
[2018-08-27] MEDS: PIPERACILLIN/TAZO/PMX 3.375GM 50 ML IV SCH ×4 (04:11→20:21)
[2018-08-27] MEDS: PANTOPRAZOLE 40 MG IV IVPush SCH ×2 (08:11→20:21)
[2018-08-27] MEDS: MICAFUNGIN 150 MG in SODIUM CHLORIDE 0.9% 100 ML IV SCH (08:12)
[2018-08-27 08:59] VITALS: BP 111/75
[2018-08-27] MEDS ORDERED: FENTANYL PF 100 MCG/2ML ONE (09:17)
[2018-08-27] MEDS ORDERED: MIDAZOLAM 1 MG/ML, 5ML ONE (09:18)
[2018-08-27 11:25] VITALS: BP 111/75
[2018-08-27] MEDS ORDERED: LIDOCAINE 2%, 20ML ONE (12:00)
[2018-08-27] MEDS ORDERED: LIDOCAINE 4% TOPICAL SOLUTION 50 ML ONE (12:00)
[2018-08-27] MEDS: SODIUM CHLORIDE 0.9% 1,000 ML IV SCH (13:37)
[2018-08-27 14:05] VITALS: BP 115/76
[2018-08-27] MEDS: morphine SULFATE 10 MG/ML, 1ML IVPush PRN (17:23)
[2018-08-27 20:30] VITALS: BP 122/80
[2018-08-28 00:40] VITALS: BP 115/73
[2018-08-28] MEDS: SODIUM CHLORIDE 0.9% 1,000 ML IV SCH ×2 (02:29→16:37)
[2018-08-28] MEDS: PIPERACILLIN/TAZO/PMX 3.375GM 50 ML IV SCH ×4 (03:30→20:45)
[2018-08-28] MEDS: DEXAMETHASONE 4 MG/ML, 1ML IV SCH ×2 (03:30→16:37)
[2018-08-28 08:00] VITALS: BP 125/83
[2018-08-28] MEDS: MICAFUNGIN 150 MG in SODIUM CHLORIDE 0.9% 100 ML IV SCH (08:47)
[2018-08-28] MEDS: PANTOPRAZOLE 40 MG IV IVPush SCH ×2 (08:50→20:44)
[2018-08-28 14:00] VITALS: BP 109/72
[2018-08-28] MEDS: morphine SULFATE 10 MG/ML, 1ML IVPush PRN (14:00)
[2018-08-28 20:17] VITALS: BP 120/79
[2018-08-29 02:15] VITALS: BP 117/77
[2018-08-29] MEDS: PIPERACILLIN/TAZO/PMX 3.375GM 50 ML IV SCH ×4 (03:37→22:17)
[2018-08-29] MEDS: DEXAMETHASONE 4 MG/ML, 1ML IV SCH ×2 (03:37→16:11)
[2018-08-29] MEDS: SODIUM CHLORIDE 0.9% 1,000 ML IV SCH (05:40)
[2018-08-29 06:55] VITALS: BP 110/76
[2018-08-29 08:16] LABS: BASOPHILS # (AUTO) 0.03 x10^3/uL (0-0.1); BASOPHILS % (AUTO) 0 % (0-1); EOSINOPHILS # (AUTO) 0.01 x10^3/uL (0-0.4); EOSINOPHILS % (AUTO) 0 % (1-7); LYMPHOCYTES # (AUTO) 0.28 x10^3/uL (1-3.4); LYMPHOCYTES % (AUTO) 3 % (22-44); MD NO; MEAN CORPUSCULAR HEMOGLOBIN 29.9 pg (27.5-34.5); MEAN CORPUSCULAR HGB CONC 32.4 g/dL (33.2-36.2); MEAN CORPUSCULAR VOLUME 92.3 fL (81-97); MEAN PLATELET VOLUME 10.2 fL (7.4-10.4); MONOCYTES # (AUTO) 0.43 x10^3/uL (0.2-0.8); MONOCYTES % (AUTO) 5 % (2-9); NEUTROPHILS # (AUTO) 7.71 x10^3/uL (1.8-6.8); NEUTROPHILS % (AUTO) 91 % (42-75); PLATELET COUNT 287 x10^3/uL (130-400); RED BLOOD COUNT 4.01 x10^6/uL (4.38-5.82); RED CELL DISTRIBUTION WIDTH 15.8 % (9.4-14.8)
[2018-08-29 08:29] LABS: ALBUMIN 2.4 g/dL (3.4-5.0); CHLORIDE 105 mmol/L (98-107)
[2018-08-29 08:34] LABS: ALANINE AMINOTRANSFERASE 27 U/L (12-78); ALKALINE PHOSPHATASE 81 U/L (45-117); ANION GAP 6 mmol/L (5-15); BILIRUBIN,TOTAL 0.3 mg/dL (0.2-1.0); CALCIUM 8.5 mg/dL (8.5-10.1); CREATININE 0.63 mg/dL (0.7-1.3); TOTAL PROTEIN 5.9 g/dL (6.4-8.2)
[2018-08-29] MEDS: PANTOPRAZOLE 40 MG IV IVPush SCH ×2 (08:49→20:39)
[2018-08-29] MEDS: MICAFUNGIN 150 MG in SODIUM CHLORIDE 0.9% 100 ML IV SCH (09:06)
[2018-08-29] MEDS: morphine SULFATE 10 MG/ML, 1ML IVPush PRN (12:27)
[2018-08-29 13:45] VITALS: BP 139/80
[2018-08-29 19:59] VITALS: BP 127/79
[2018-08-30] MEDS: SODIUM CHLORIDE 0.9% 1,000 ML IV SCH ×2 (00:11→15:27)
[2018-08-30 01:32] VITALS: BP 111/71
[2018-08-30] MEDS: DEXAMETHASONE 4 MG/ML, 1ML IV SCH ×2 (04:18→16:46)
[2018-08-30] MEDS: PIPERACILLIN/TAZO/PMX 3.375GM 50 ML IV SCH ×2 (04:19→10:20)
[2018-08-30 07:33] VITALS: BP 116/80
[2018-08-30] MEDS: PANTOPRAZOLE 40 MG IV IVPush SCH (07:58)
[2018-08-30] MEDS: MICAFUNGIN 150 MG in SODIUM CHLORIDE 0.9% 100 ML IV SCH (09:25)
[2018-08-30 13:21] VITALS: BP 112/71
[2018-08-30 19:25] VITALS: BP 115/77
[2018-08-30] MEDS: morphine SULFATE 10 MG/ML, 1ML IVPush PRN (19:26)
[2018-08-31 01:46] VITALS: BP 118/80
[2018-08-31] MEDS: SODIUM CHLORIDE 0.9% 1,000 ML IV SCH ×2 (04:14→16:13)
[2018-08-31] MEDS: DEXAMETHASONE 4 MG/ML, 1ML IV SCH ×2 (04:21→16:08)
[2018-08-31 06:58] VITALS: BP 122/85
[2018-08-31 12:27] VITALS: BP 117/80
[2018-08-31] MEDS: morphine SULFATE 10 MG/ML, 1ML IVPush PRN ×2 (13:30→20:57)
[2018-08-31 20:36] VITALS: BP 119/79
[2018-08-31] MEDS ORDERED: MORPHINE SULFATE 4 MG/ML, 1ML ONE (20:51)
[2018-09-01 01:01] VITALS: BP 115/78
[2018-09-01] MEDS ORDERED: MORPHINE SULFATE 4 MG/ML, 1ML ONE ×2 (04:13→19:47)
[2018-09-01] MEDS: morphine SULFATE 10 MG/ML, 1ML IVPush PRN ×3 (04:15→19:55)
[2018-09-01] MEDS: DEXAMETHASONE 4 MG/ML, 1ML IV SCH ×2 (04:15→17:06)
[2018-09-01] MEDS: SODIUM CHLORIDE 0.9% 1,000 ML IV SCH (04:22)
[2018-09-01 08:05] VITALS: BP 114/75
[2018-09-01 13:09] LABS: BASOPHILS # (AUTO) 0.04 x10^3/uL (0-0.1); BASOPHILS % (AUTO) 1 % (0-1); EOSINOPHILS # (AUTO) 0.01 x10^3/uL (0-0.4); EOSINOPHILS % (AUTO) 0 % (1-7); LYMPHOCYTES % (AUTO) 4 % (22-44); MD NO; MEAN CORPUSCULAR HEMOGLOBIN 30.8 pg (27.5-34.5); MEAN CORPUSCULAR HGB CONC 32.9 g/dL (33.2-36.2); MEAN CORPUSCULAR VOLUME 93.6 fL (81-97); MEAN PLATELET VOLUME 9.1 fL (7.4-10.4); MONOCYTES # (AUTO) 0.53 x10^3/uL (0.2-0.8); MONOCYTES % (AUTO) 7 % (2-9); NEUTROPHILS # (AUTO) 7.26 x10^3/uL (1.8-6.8); NEUTROPHILS % (AUTO) 89 % (42-75); PLATELET COUNT 320 x10^3/uL (130-400); RED BLOOD COUNT 4.15 x10^6/uL (4.38-5.82); RED CELL DISTRIBUTION WIDTH 16.7 % (9.4-14.8)
[2018-09-01 13:23] LABS: ANION GAP 8 mmol/L (5-15); CALCIUM 8.9 mg/dL (8.5-10.1); CHLORIDE 106 mmol/L (98-107); CREATININE 0.59 mg/dL (0.7-1.3)
[2018-09-01 14:00] VITALS: BP 113/78
[2018-09-01] MEDS ORDERED: DIPHENHYDRAMINE 50 MG/ML, 1ML IVPush ONE (14:00)
[2018-09-01] MEDS ORDERED: FAMOTIDINE 20 MG/2 ML IVPush ONE (14:00)
[2018-09-01] MEDS ORDERED: ONDANSETRON 16 MG, DEXAMETHASONE 10 MG in SODIUM CHLORIDE 0.9% 50 ML IVPB ONE (14:00)
[2018-09-01] MEDS ORDERED: FILTER 0.22 MICRON IV ONE (14:30)
[2018-09-01] MEDS ORDERED: SODIUM CHLORIDE 0.9% IV ONE ×2 (15:00→16:00)
[2018-09-01] MEDS ORDERED: PACLITAXEL IV ONE (15:00)
[2018-09-01] MEDS ORDERED: CARBOPLATIN IV ONE (16:00)
[2018-09-01 20:38] VITALS: BP 118/82
[2018-09-02] MEDS ORDERED: MORPHINE SULFATE 4 MG/ML, 1ML ONE (02:07)
[2018-09-02] MEDS: SODIUM CHLORIDE 0.9% 1,000 ML IV SCH ×2 (02:10→12:50)
[2018-09-02] MEDS: morphine SULFATE 10 MG/ML, 1ML IVPush PRN ×3 (02:10→20:42)
[2018-09-02 02:11] VITALS: BP 112/73
[2018-09-02] MEDS: DEXAMETHASONE 4 MG/ML, 1ML IV SCH ×2 (05:18→17:09)
[2018-09-02 05:25] LABS: BASOPHILS # (AUTO) 0.01 x10^3/uL (0-0.1); BASOPHILS % (AUTO) 0 % (0-1); EOSINOPHILS % (AUTO) 0 % (1-7); LYMPHOCYTES # (AUTO) 0.24 x10^3/uL (1-3.4); LYMPHOCYTES % (AUTO) 4 % (22-44); MD NO; MEAN CORPUSCULAR HGB CONC 33.5 g/dL (33.2-36.2); MEAN CORPUSCULAR VOLUME 92.5 fL (81-97); MEAN PLATELET VOLUME 9.7 fL (7.4-10.4); MONOCYTES # (AUTO) 0.31 x10^3/uL (0.2-0.8); MONOCYTES % (AUTO) 5 % (2-9); NEUTROPHILS # (AUTO) 5.64 x10^3/uL (1.8-6.8); NEUTROPHILS % (AUTO) 91 % (42-75); PLATELET COUNT 296 x10^3/uL (130-400); RED BLOOD COUNT 4.03 x10^6/uL (4.38-5.82); RED CELL DISTRIBUTION WIDTH 16.2 % (9.4-14.8)
[2018-09-02 05:37] LABS: CHLORIDE 107 mmol/L (98-107)
[2018-09-02 05:44] LABS: ALANINE AMINOTRANSFERASE 26 U/L (12-78); ALBUMIN 2.4 g/dL (3.4-5.0); ALKALINE PHOSPHATASE 82 U/L (45-117); ANION GAP 5 mmol/L (5-15); BILIRUBIN,TOTAL 0.3 mg/dL (0.2-1.0); CALCIUM 8.2 mg/dL (8.5-10.1); CREATININE 0.53 mg/dL (0.7-1.3); TOTAL PROTEIN 5.8 g/dL (6.4-8.2)
[2018-09-02 07:23] VITALS: BP 114/74
[2018-09-02 12:26] VITALS: BP 109/72
[2018-09-02 19:28] VITALS: BP 113/72
[2018-09-03 00:45] VITALS: BP 123/76
[2018-09-03] MEDS: SODIUM CHLORIDE 0.9% 1,000 ML IV SCH ×2 (02:33→16:00)
[2018-09-03] MEDS: DEXAMETHASONE 4 MG/ML, 1ML IV SCH ×2 (04:44→16:00)
[2018-09-03 04:46] LABS: BASOPHILS # (AUTO) 0.02 x10^3/uL (0-0.1); BASOPHILS % (AUTO) 0 % (0-1); EOSINOPHILS # (AUTO) 0.01 x10^3/uL (0-0.4); EOSINOPHILS % (AUTO) 0 % (1-7); LYMPHOCYTES # (AUTO) 0.28 x10^3/uL (1-3.4); LYMPHOCYTES % (AUTO) 4 % (22-44); MD NO; MEAN CORPUSCULAR HEMOGLOBIN 30.3 pg (27.5-34.5); MEAN CORPUSCULAR HGB CONC 32.6 g/dL (33.2-36.2); MEAN CORPUSCULAR VOLUME 92.9 fL (81-97); MEAN PLATELET VOLUME 9.5 fL (7.4-10.4); MONOCYTES # (AUTO) 0.52 x10^3/uL (0.2-0.8); MONOCYTES % (AUTO) 8 % (2-9); NEUTROPHILS # (AUTO) 6.01 x10^3/uL (1.8-6.8); NEUTROPHILS % (AUTO) 88 % (42-75); PLATELET COUNT 278 x10^3/uL (130-400); RED CELL DISTRIBUTION WIDTH 16.4 % (9.4-14.8)
[2018-09-03 04:56] LABS: CHLORIDE 103 mmol/L (98-107)
[2018-09-03 05:01] LABS: ALANINE AMINOTRANSFERASE 24 U/L (12-78); ALBUMIN 2.5 g/dL (3.4-5.0); ALKALINE PHOSPHATASE 87 U/L (45-117); ANION GAP 7 mmol/L (5-15); BILIRUBIN,TOTAL 0.9 mg/dL (0.2-1.0); CALCIUM 8.4 mg/dL (8.5-10.1); CREATININE 0.61 mg/dL (0.7-1.3); TOTAL PROTEIN 5.7 g/dL (6.4-8.2)
[2018-09-03 08:00] VITALS: BP 127/81
[2018-09-03 13:59] VITALS: BP 122/84
[2018-09-03] MEDS: morphine SULFATE 10 MG/ML, 1ML IVPush PRN ×2 (14:39→22:21)
[2018-09-03 20:25] VITALS: BP 107/76
[2018-09-04 03:55] VITALS: BP 129/89
[2018-09-04] MEDS: SODIUM CHLORIDE 0.9% 1,000 ML IV SCH ×2 (04:03→16:46)
[2018-09-04] MEDS: DEXAMETHASONE 4 MG/ML, 1ML IV SCH ×2 (04:03→16:45)
[2018-09-04 07:52] VITALS: BP 123/82
[2018-09-04 08:34] LABS: MEAN CORPUSCULAR HEMOGLOBIN 30.7 pg (27.5-34.5); MEAN CORPUSCULAR HGB CONC 32.9 g/dL (33.2-36.2); MEAN CORPUSCULAR VOLUME 93.4 fL (81-97); MEAN PLATELET VOLUME 9.4 fL (7.4-10.4); PLATELET COUNT 256 x10^3/uL (130-400); RED BLOOD COUNT 4.46 x10^6/uL (4.38-5.82); RED CELL DISTRIBUTION WIDTH 16.6 % (9.4-14.8)
[2018-09-04 08:44] LABS: ANION GAP 8 mmol/L (5-15); CALCIUM 8.5 mg/dL (8.5-10.1); CHLORIDE 102 mmol/L (98-107); CREATININE 0.62 mg/dL (0.7-1.3)
[2018-09-04 09:46] LABS: BASOPHILS # (AUTO) 0.04 x10^3/uL (0-0.1); BASOPHILS % (AUTO) 1 % (0-1); EOSINOPHILS % (AUTO) 0 % (1-7); LYMPHOCYTES # (AUTO) 0.14 x10^3/uL (1-3.4); LYMPHOCYTES % (AUTO) 2 % (22-44); MD SCAN; MONOCYTES # (AUTO) 0.26 x10^3/uL (0.2-0.8); MONOCYTES % (AUTO) 3 % (2-9); NEUTROPHILS # (AUTO) 8.42 x10^3/uL (1.8-6.8); NEUTROPHILS % (AUTO) 95 % (42-75)
[2018-09-04] MEDS: morphine SULFATE 10 MG/ML, 1ML IVPush PRN ×3 (11:21→22:32)
[2018-09-04 13:35] VITALS: BP 121/86
[2018-09-04 19:13] VITALS: BP 113/75
[2018-09-04 20:25] VITALS: BP 130/87
[2018-09-05] MEDS ORDERED: MORPHINE SULFATE 4 MG/ML, 1ML IVPush ONE (00:30)
[2018-09-05] MEDS: morphine SULFATE 10 MG/ML, 1ML IVPush PRN ×6 (00:41→11:22)
[2018-09-05 02:47] VITALS: BP 127/93
[2018-09-05 04:34] LABS: MEAN CORPUSCULAR HEMOGLOBIN 30.2 pg (27.5-34.5); MEAN CORPUSCULAR HGB CONC 32.3 g/dL (33.2-36.2); MEAN CORPUSCULAR VOLUME 93.7 fL (81-97); MEAN PLATELET VOLUME 9.5 fL (7.4-10.4); PLATELET COUNT 246 x10^3/uL (130-400); RED BLOOD COUNT 4.66 x10^6/uL (4.38-5.82); RED CELL DISTRIBUTION WIDTH 16.1 % (9.4-14.8)
[2018-09-05 04:44] LABS: ALBUMIN 2.7 g/dL (3.4-5.0); ANION GAP 7 mmol/L (5-15); CALCIUM 8.5 mg/dL (8.5-10.1); CHLORIDE 103 mmol/L (98-107)
[2018-09-05 04:48] LABS: ALANINE AMINOTRANSFERASE 21 U/L (12-78); ALKALINE PHOSPHATASE 92 U/L (45-117); BILIRUBIN,TOTAL 0.6 mg/dL (0.2-1.0); CREATININE 0.69 mg/dL (0.7-1.3); TOTAL PROTEIN 6.1 g/dL (6.4-8.2)
[2018-09-05] MEDS: DEXAMETHASONE 4 MG/ML, 1ML IV SCH (05:17)
[2018-09-05] MEDS ORDERED: SCOPOLAMINE PATCH, 1.5MG PATCH.TD72 TD SCH (05:30)
[2018-09-05 05:39] LABS: BASOPHILS % (AUTO) 1 % (0-1); EOSINOPHILS # (AUTO) 0.01 x10^3/uL (0-0.4); EOSINOPHILS % (AUTO) 0 % (1-7); LYMPHOCYTES # (AUTO) 0.19 x10^3/uL (1-3.4); LYMPHOCYTES % (AUTO) 2 % (22-44); MD SCAN; MONOCYTES # (AUTO) 0.34 x10^3/uL (0.2-0.8); MONOCYTES % (AUTO) 3 % (2-9); NEUTROPHILS % (AUTO) 95 % (42-75)
[2018-09-05] MEDS: SODIUM CHLORIDE 0.9% 1,000 ML IV SCH (07:00)
[2018-09-05 08:21] VITALS: BP 92/69
[2018-09-05] MEDS: LORazepam 2 MG/ML, 1ML IVPush PRN ×7 (09:09→19:24)
[2018-09-05] MEDS ORDERED: LORazepam 2 MG/ML, 1ML ONE (15:18)
[2018-09-05] MEDS ORDERED: MORPHINE SULFATE 4 MG/ML, 1ML IVPush PRN ×2 (15:30)
[2018-09-05] MEDS ORDERED: ATROPINE OPHTH SOLN 1%, 2ML BC PRN (15:30)
== END 2018-09-06 03:10 | disposition expired | DRG 180 ==
LOC: ED 18:38 → EDIP 19:47 → CCU 21:07 → 3NW 08-20 10:06 → CCU 08-24 18:20 → 3NW 08-25 18:30
PROVIDERS: ADMIT Internal Medicine; ATTEND Internal Medicine
PROC: 0BB28ZX Excision of Carina, Via Natural or Artificial Opening Endoscopic, Diagnostic (ICD-10-PCS; principal; 2018-08-27 10:00)
DX: C78.01 Secondary malignant neoplasm of right lung (principal); J96.01 Acute respiratory failure with hypoxia; J69.0 Pneumonitis due to inhalation of food and vomit; E43 Unspecified severe protein-calorie malnutrition; C15.4 Malignant neoplasm of middle third of esophagus; Z68.20 Body mass index [BMI] 20.0-20.9, adult; F12.90 Cannabis use, unspecified, uncomplicated; F17.200 Nicotine dependence, unspecified, uncomplicated; J44.9 Chronic obstructive pulmonary disease, unspecified; J98.09 Other diseases of bronchus, not elsewhere classified; K22.2 Esophageal obstruction; R93.89 Abnormal findings on diagnostic imaging of other specified body structures; Z51.5 Encounter for palliative care; Z66 Do not resuscitate; Z80.0 Family history of malignant neoplasm of digestive organs; Z80.1 Family history of malignant neoplasm of trachea, bronchus and lung; Z92.3 Personal history of irradiation; Z93.4 Other artificial openings of gastrointestinal tract status; D63.8 Anemia in other chronic diseases classified elsewhere
CPT/HCPCS: 36415; 70360; 99291; J3490; J7042; 31625; 70491; 71045; 71046; 71275; 77280; 77300; 77336; 77338; 77386; 80048; 80053; 80061; 83036; 83605; 83735; 84100; 84439; 84443; 84484; 85025; 87040; 87081; 87205; 88305; 88312; 93005; 99152; 99153; G0378; J1100; J2248; J2250; J2270; J2405; J2543; J3010; J3370; J9045; J9267; Q9967; C9113; J1200; J2060; J7030; J7050